=== PATIENT | female | born 1950 | race Caucasian/White ===

== ENCOUNTER 2020-09-16 06:01 | Inpatient (IN) | payer OTHER, SELFPAY ==
[~2020-09-16] VITALS: Ht 157.5 cm; Wt 115.7 kg
--- NOTE | 2020-09-16 06:01 | NUR ---
Patient to ER bed 7 to gown for evaluation. Side rails up.
--- NOTE | 2020-09-16 06:10 | NUR ---
Dr. St bedside for pt eval
[2020-09-16] MEDS ORDERED: ONDANSETRON HCL 4 MG/2 ML VIAL IVP ONE (06:15)
[2020-09-16] MEDS ORDERED: KETOROLAC TROMETHAMINE 30 MG VIAL IVP ONE (06:15)
--- NOTE | 2020-09-16 06:20 | NUR ---
Pt BIB family to ED C/O nausea/vomiting/and diarrhea. She states that she has had sx's for a few days, but they mostly occur at night. She experiences multiple episodes of vomiting and diarrhea. She also reports chills and dizziness. She has abdominal discomfort in the pelvic region which she rates 5/10 VSS no s/s of acute distress Resting on gurney rails up
[2020-09-16 06:30] VITALS: BP_SYST 158
[2020-09-16 06:30] LABS: BASOPHILS % (AUTO) 0.3 % (0.0-2.0); EOSINOPHILS % (AUTO) 0.3 % (0.0-4.0); HEMATOCRIT 37.6 % (36-48); HEMOGLOBIN 12.6 g/dL (12.0-16.0); LYMPHOCYTES # (AUTO) 1.2 K/uL (1.0-5.5); LYMPHOCYTES % (AUTO) 9.3 % (20.5-51.5); MEAN CORPUSCULAR HEMOGLOBIN 29 pg (27-31); MEAN CORPUSCULAR HGB CONC 33 % (32-36); MEAN CORPUSCULAR VOLUME 87 fL (79.0-98.0); MONOCYTES # (AUTO) 0.6 K/uL (0.0-1.0); MONOCYTES % (AUTO) 4.7 % (1.7-9.3); NEUTROPHILS # (AUTO) 10.8 K/uL (1.8-7.7); NEUTROPHILS % (AUTO) 85.4 % (40.0-70.0); PLATELET COUNT (AUTO) 194 K/uL (130-430); RED BLOOD CELL COUNT(AUTO) 4.33 MIL/uL (4.2-6.2); RED CELL DISTRIBUTION WIDTH 15.3 % (9.0-15.0); WHITE BLOOD COUNT (AUTO) 12.7 K/uL (4.8-10.8)
[2020-09-16 06:42] LABS: ANION GAP 9 (5-15); CALCIUM 8.2 mg/dL (8.4-11.0); CHLORIDE 101 mmol/L (98-107); CREATININE 0.78 mg/dL (0.55-1.30); GLUCOSE 146 mg/dL (70-99); POTASSIUM 3.9 mmol/L (3.5-5.1); SODIUM SERUM 134 mmol/L (136-145); UREA NITROGEN, BLOOD 8 mg/dL (8-21)
[2020-09-16 06:44] LABS: PROTHROMBIN TIME 10.6 SECS (9.5-12.5)
[2020-09-16 06:47] LABS: ALANINE AMINOTRANSFERASE 42 U/L (12-78); ALBUMIN 3.1 g/dL (3.4-4.8); AMYLASE 59 U/L (0-100); ASPARTATE AMINOTRANSFERASE 33 U/L (10-37); LIPASE 49 U/L (73-393); TOTAL BILIRUBIN 0.6 mg/dL (0.0-1.0)
--- NOTE | 2020-09-16 06:52 | NUR ---
LAURA Wise sent to lab
--- NOTE | 2020-09-16 06:57 | NUR ---
Portable X Ray bedside, well tolerated
--- NOTE | 2020-09-16 08:00 | NUR ---
Pt resting in hatt[place]oriarty VSS
--- NOTE | 2020-09-16 08:50 | NUR ---
Pt beginning to have some dyspnea, states hx asthma. MD reevaluate pt respiratory status
[2020-09-16] MEDS ORDERED: IPRATROPIUM/ALBUTEROL SULFATE 3 ML AMPUL.NEB (DUONEB) INH ONE (09:15)
--- NOTE | 2020-09-16 09:20 | NUR ---
Pt breathing more comfortably after treatment
[2020-09-16] MEDS ORDERED: cefTRIAXone 1 GM IVPB PREMIX 50 ML IV ONE (10:00)
[2020-09-16] MEDS ORDERED: LORazepam 2 MG/ML VIAL IVP ONE (10:15)
--- NOTE | 2020-09-16 10:22 | NUR ---
Patient will be admitted to care of Dr. Boyd. Admitted to tele unit. Will go to room 123B. Belongings list completed. Complete and up to date summary report printed. SBAR report to be given at bedside with opportunity for questions.
[2020-09-16 10:35] VITALS: BP_SYST 144
--- NOTE | 2020-09-16 10:35 | NUR ---
Note Pt arrived from ED via gurney to room. Pt has coughing, no output. VS stable and tele unit applied on admission to room. Pt was oriented to room and nursing routines and procedures. Questions/concerns wee answered at this time. Pt oriented to call light and kept within reach.
[2020-09-16] MEDS ORDERED: IPRATROPIUM BROM 0.5 MG/2.5 ML VIAL.NEB (ATROVENT) INH PRN (10:45)
[2020-09-16] MEDS ORDERED: ALBUTEROL SULFATE 0.083% 2.5 MG/3 ML VIAL.NEB INH PRN (10:45)
[2020-09-16] MEDS ORDERED: cefTRIAXone 1 GM in D5W 50 ML IV SCH (11:00)
[2020-09-16] MEDS ORDERED: RACEPINEPHRINE HCL 0.5 ML VIAL.NEB INH ONE ×2 (11:15→11:30)
[2020-09-16] MEDS ORDERED: methylPREDNISolone SOD SUCC/PF 62.5 MG/ML VIAL IVP ONE (11:15)
--- NOTE | 2020-09-16 11:30 | NUR ---
Note 11am - pt has difficulty breathing and can't catch her breath. Breathing treatment done in ED at 0920am not effective. Dr Olson (pulm) called and orders received. RT at bedside doing treatment. Pt's daughter Chente called for medical history, Noemy (daughter) also called for medical history as pt unable to answer questions due to SOB and resp distress.
[2020-09-16] MEDS ORDERED: MECL-174 PO (11:41)
[2020-09-16] MEDS ORDERED: LOSA100T3 PO (11:41)
[2020-09-16] MEDS ORDERED: PRO40 PO (11:41)
[2020-09-16] MEDS ORDERED: CEL20 PO (11:41)
[2020-09-16] MEDS ORDERED: IBUP-1969 PO (11:41)
[2020-09-16 12:00] VITALS: BP_SYST 139
[2020-09-16] MEDS: AZITHROMYCIN 500 MG in NS 250 ML IV SCH (12:44)
[2020-09-16] MEDS: ALBUTEROL SULFATE 0.083% 2.5 MG/3 ML VIAL.NEB INH SCH ×2 (13:31→19:51)
[2020-09-16] MEDS: IPRATROPIUM BROM 0.5 MG/2.5 ML VIAL.NEB (ATROVENT) INH SCH ×2 (13:31→19:52)
--- NOTE | 2020-09-16 14:15 | NUR ---
Note Pt resting in bed with O2 facial mask on. No SOB/resp distress or pain/discomfort noted at this time. Pt able to sit up and turn/move in bed independently. Dr Olson on the floor to assess pt and check labs.
[2020-09-16 16:00] VITALS: BP_SYST 135
--- NOTE | 2020-09-16 18:25 | NUR ---
Note Pt sitting on side of bed eating her dinner. Pt removed her face mask to eat. No SOB/resp distress or pain/discomfort noted at this time. IV in RAC intact and patent all shift. Pt was checked on q1' for care and needs. Pt was checked for safety and isolation precautions all shift. No needs noted. Call light within reach.
--- NOTE | 2020-09-16 19:15 | NUR ---
Report received from day shift nurse. Pt is lying in bed fully awake, alert and oriented x4. Pt is on oxygen via Cool aerosol mask at 5L/min and oxygen saturations are ranging from 95% to 96%. Shortness of breath on exertion noted. Pt denies pain at this time. Saline lock in RAC is without any signs of infiltration. Fall, droplet isolation and safety precautions are in place. Call light is with pt and bed is in lowest/locked positions.
[2020-09-16 20:00] VITALS: BP_SYST 114
--- NOTE | 2020-09-16 20:45 | NUR ---
Resting comfortably in bed. No c/o pain or discomfort. Fall, droplet isolation and safety precautions are in place.
[2020-09-16] MEDS: methylPREDNISolone SOD SUCC/PF 62.5 MG/ML VIAL IVP SCH (20:50)
--- NOTE | 2020-09-16 23:00 | NUR ---
Pt is sleeping without any distress noted. Oxygen is on via aerosol mask at 5L/min. Call light is with pt and bed alarm is on.
[2020-09-17] VITALS: BP_SYST 121
--- NOTE | 2020-09-17 01:00 | NUR ---
Pt is sleeping without any distress noted. Call light is with pt and bed alarm is on. Oxygen is on at 5L/min via aerosol mask.
[2020-09-17] MEDS: IPRATROPIUM BROM 0.5 MG/2.5 ML VIAL.NEB (ATROVENT) INH SCH ×3 (01:15→16:35)
[2020-09-17] MEDS: ALBUTEROL SULFATE 0.083% 2.5 MG/3 ML VIAL.NEB INH SCH ×3 (01:15→16:34)
--- NOTE | 2020-09-17 02:15 | NUR ---
Pt ambulated to the bathroom and back to bed with FWW. Gait slow and steady. Pt had SOB on exertion. Pt was offered BSC, but pt declined. Pt had loose brownish bowel movement in the toilet. Pt placed back on oxygen at 5L/min via Aerosol mask. Call light given to pt and bed alarm on.
--- NOTE | 2020-09-17 04:05 | NUR ---
Pt ambulated to the bathroom and back to bed with FWW. Gait slow and steady. Pt had SOB on exertion and non-productive cough. Pt had another loose brownish bowel movement in the toilet. Pt was placed back on oxygen at 5L/min via Aerosol mask. Call light given to pt and bed alarm on.
--- NOTE | 2020-09-17 05:20 | NUR ---
Pt had another loose brownish bowel movement in the toilet.
--- NOTE | 2020-09-17 06:35 | NUR ---
Pt is resting comfortably in bed. No c/o pain or discomfort. Fall, droplet isolation and safety precautions are in place. Will endorse to day shift nurse.
--- NOTE | 2020-09-17 07:12 | NUR ---
Report given to day shift nurse.
[2020-09-17 08:00] VITALS: BP_SYST 121
--- NOTE | 2020-09-17 08:00 | NUR ---
Note Pt sitting up in bed eating her breakfast with Areosal mask on. Tele unit attached and intact at this time. IV in RAC intact and patent. No SOB/resp distress or pain/discomfort noted at this time. Pt has non productive cough at this time. Call light within reach.
[2020-09-17] MEDS: CITALOPRAM HYDROBROMIDE 20 MG TABLET PO SCH (09:14)
[2020-09-17] MEDS: methylPREDNISolone SOD SUCC/PF 62.5 MG/ML VIAL IVP SCH ×2 (09:14→20:17)
[2020-09-17] MEDS: cefTRIAXone 1 GM in D5W 50 ML IV SCH (09:14)
[2020-09-17] MEDS: LOSARTAN POTASSIUM 50 MG TABLET (COZAAR) PO SCH (09:15)
[2020-09-17] MEDS: PANTOPRAZOLE SODIUM 40 MG TAB PO SCH (09:15)
--- NOTE | 2020-09-17 10:00 | NUR ---
Note Dr Olson on the floor to assess pt, spoke to pt's daughter and update on pt's status given. Questions/concerns were answered at this time. Call light within reach.
--- NOTE | 2020-09-17 10:08 | NUR ---
Nutrition Update Cash Scale 17 noted. Pt admitted for pneumonia/rule out COVID. Diet: regular BMI: 46.6 kg/m2 RD to follow per nutrition care standards.
[2020-09-17] MEDS ORDERED: hydrALAZINE HCL 20 MG/ML VIAL IVP PRN (10:30)
[2020-09-17] MEDS ORDERED: cloNIDine HCL 0.1 MG TABLET PO PRN (10:30)
[2020-09-17] MEDS: AZITHROMYCIN 500 MG in NS 250 ML IV SCH (11:09)
[2020-09-17] MEDS: guaiFENesin/DEXTROMETHORPHAN 10 ML UDC PO PRN ×2 (11:45→22:46)
[2020-09-17 12:00] VITALS: BP_SYST 144
--- NOTE | 2020-09-17 12:15 | NUR ---
Note Pt ambulated to restroom with FWW and standby assist. Pt got out of breath during ambulation. Pt denies any needs at this time. Call light within reach. Areosol mask on throughout shift.
--- NOTE | 2020-09-17 14:50 | NUR ---
Note Pt resting in bed watching television with Aerosol mask on. Denies any needs at this time. Call light within reach.
[2020-09-17 16:00] VITALS: BP_SYST 137
--- NOTE | 2020-09-17 18:20 | NUR ---
Note Pt sitting on side of bed and eating her dinner. Pt has been on O2 at 1L/nc and sats at 94% - done by RT per Dr Boyd's request. No SOB/resp distress or pain/discomfort noted at this time. Tele unit attached and intact all shift. Pt has been checked on q1' and PRN all shift for needs and care. Pt was maintained with safety and isolation precautions all shift. IV in RAC intact and patent. No needs noted at this time. Call light within reach. Staff Nurse Anesthetist (Dr Olson) called and had isolation precautions dc'd - pt negative for COVID (PCR).
--- NOTE | 2020-09-17 19:15 | NUR ---
Report received from day shift nurse. Pt was received standing at her bedside fully awake, alert and oriented x4. Pt is on room air and oxygen saturation is 94%. No SOB noted. Pt denies pain at this time. Saline lock in RAC is without any signs of infiltration. Fall and safety precautions are in place. Call light is with pt and bed is in lowest/locked positions.
[2020-09-17 20:00] VITALS: BP_SYST 107
--- NOTE | 2020-09-17 20:44 | NUR ---
Report given to nurse Shaver for continuity of pt's nursing care.
--- NOTE | 2020-09-17 20:45 | NUR ---
OPENING NOTES Received report from ROSS Barrera. Patient transferred to room 119B, AAOx4, breathing evenly and nonlabored on 2L of oxygen via NC. Patient has an IV on the right AC 20g SL, flushed, patent and benign, no s/s of infection or infiltration at this time. Educated patient on plan of care, fall/safety precautions, call light system, patient stated understanding with return demonstration. Bed is locked, armed, and at lowest position, will continue to monitor.
--- NOTE | 2020-09-17 22:46 | NUR ---
PRN MEDICATION FOR COUGHING GIVEN Patient resting in bed, awake, breathing evenly and nonlabored on room air. Patient complained of coughing. Educated patient on Robitussin, patient stated understanding. Administered cough medication, patient tolerated it well. No other needs at this time. Fall/safety precautions, will continue to monitor. Addendum: 09/18/20 at 0330 by Timoteo Davis RN PRN MEDICATION FOR COUGHING GIVEN Patient resting in bed, awake, breathing evenly and nonlabored on 2L of oxygen via NC. Patient complained of coughing. Educated patient on Robitussin, patient stated understanding. Administered cough medication, patient tolerated it well. No other needs at this time. Fall/safety precautions, will continue to monitor.
--- NOTE | 2020-09-18 00:12 | NUR ---
ROUNDS Patient resting in bed, eyes closed, breathing evenly and nonlabored on room air. No s/s of distress at this time, no other needs at this time. Fall/safety precautions, will continue to monitor the patient. Addendum: 09/18/20 at 0329 by Timoteo Davis RN ROUNDS Patient resting in bed, eyes closed, breathing evenly and nonlabored on 2L of oxygen via NC. No s/s of distress at this time, no other needs at this time. Fall/safety precautions, will continue to monitor the patient.
[2020-09-18 00:52] VITALS: BP_SYST 130
--- NOTE | 2020-09-18 02:19 | NUR ---
ROUNDS Patient resting in bed, eyes closed, breathing evenly and nonlabored on 2L of oxygen via NC. No s/s of distress at this time, no other needs at this time. Fall/safety precautions, will continue to monitor.
--- NOTE | 2020-09-18 04:11 | NUR ---
ROUNDS Patient resting in bed, eyes closed, breathing evenly and nonlabored on 2L of oxygen via NC. No s/s of distress at this time, no other needs at this time. Fall/safety precautions, will continue to monitor the patient.
--- NOTE | 2020-09-18 06:35 | NUR ---
CLOSING NOTES Patient resting in bed, eyes closed, breathing evenly and nonlabored on 2L of oxygen via NC. No s/s of distress at this time, no other needs at this time. Needs met throughout the shift. Fall/safety precautions, will endorse care to morning shift RN.
[2020-09-18] MEDS: IPRATROPIUM BROM 0.5 MG/2.5 ML VIAL.NEB (ATROVENT) INH SCH ×4 (07:31→23:43)
[2020-09-18] MEDS: ALBUTEROL SULFATE 0.083% 2.5 MG/3 ML VIAL.NEB INH SCH ×4 (07:31→23:43)
[2020-09-18 07:52] VITALS: BP_SYST 165
--- NOTE | 2020-09-18 07:52 | NUR ---
INITIAL ROUNDS Received pt AAOx4, no s/s resp distress, no c/o pain or discomfort. No c/o GI distress. Plan of care for the day reviewed with pt-pt verbalized her understanding. Pain management, disease process, skin and safety discussed-teach back done. Side rails up x3, bed alarm on, room close to nursing station for safety. Call light within reach.
[2020-09-18] MEDS: methylPREDNISolone SOD SUCC/PF 62.5 MG/ML VIAL IVP SCH ×2 (09:05→20:58)
[2020-09-18] MEDS: LOSARTAN POTASSIUM 50 MG TABLET (COZAAR) PO SCH (09:05)
[2020-09-18] MEDS: PANTOPRAZOLE SODIUM 40 MG TAB PO SCH (09:05)
[2020-09-18] MEDS: cefTRIAXone 1 GM in D5W 50 ML IV SCH (09:05)
[2020-09-18] MEDS: CITALOPRAM HYDROBROMIDE 20 MG TABLET PO SCH (09:05)
--- NOTE | 2020-09-18 11:47 | NUR ---
CONSULTATION CALLED REASON FOR CONSULTATION:PNEUMONIA WAS CONSULT CALLED?Y PERSON WHO WAS NOTIFIED:SUSAN CONSULTING PHYSICIAN:BAKARI LIU AUTO WASHER SPECIALTY:INFECTIOUS IDSEASE AUTO WASHER PHONE NUMBER:[phone] REQUESTING PHYSICIAN:LENORA DECKER
--- NOTE | 2020-09-18 11:57 | NUR ---
ROUNDS/MD Pt sitting up in bed with no s/s resp distress, no c/o pain or discomfort. Pt's daughter Noemy at bedside. Pt seen by Dr. Boyd-he spoke with Noemy also. Noted new order for ID consult. Needs met, call light within reach.
[2020-09-18 12:23] VITALS: BP_SYST 130
[2020-09-18] MEDS: AZITHROMYCIN 500 MG in NS 250 ML IV SCH (12:52)
[2020-09-18] MEDS: guaiFENesin/DEXTROMETHORPHAN 10 ML UDC PO PRN ×2 (12:58→23:07)
--- NOTE | 2020-09-18 13:00 | NUR ---
ROUNDS/WHEEZING Pt wheezing, called RT for respiratory therapy. SAO2 95% on room air.
--- NOTE | 2020-09-18 14:33 | NUR ---
Dietitian Recommendations * Recommend 2 gm Na, mechanical soft diet * RD to provide HTN and wt management MNT LP, RD Please refer to Nutrition Assessment for details. Addendum: 09/18/20 at [address] Amended: Links added.
--- NOTE | 2020-09-18 15:01 | NUR ---
ROUNDS Pt sitting up in bed talking with the dietitian. No s/s resp distress, no c/o pain or discomfort. No changes. All precautions remain in place. Call light within reach.
[2020-09-18 16:26] VITALS: BP_SYST 129
--- NOTE | 2020-09-18 18:30 | NUR ---
CLOSING NOTE Pt sitting up in bed with no c/o shortness of breath, no s/s resp distress, no c/o pain or discomfort. Pt informed that an Infectious Disease doctor will consult with her per Dr. Oliver hart. Needs met, call light within reach.
--- NOTE | 2020-09-18 19:20 | NUR ---
OPENING NOTE: RECEIVED SBAR REPORT FROM DAY SHIFT RN. PATIENT IS AWAKE, ALERT AND ORIENTED X 4. NO S/S RESPIRATORY DISTRESS NOTED. DENIES PAIN. PLAN OF CARE REVIEWED AND EXPLAINED TO PATIENT. PATIENT VERBALIZED UNDERSTANDING. SAFETY AND FALL PRECAUTIONS ARE IN PLACE. CALL LIGHT IS WITHIN REACH. WILL MONITOR PATIENT FOR ANY CHANGES.
[2020-09-18] MEDS: BUDESONIDE 0.5 MG/2 ML AMPUL.NEB INH SCH (19:43)
[2020-09-18 20:00] VITALS: BP_SYST 144
--- NOTE | 2020-09-18 20:58 | NUR ---
MEDICATION PASS: PATIENT GIVEN SCHEDULED EVENING MED. NO S/S ACUTE DISTRESS NOTED. BREATHING IN UNLABORED AND EVEN ON 1 L OF OXYGEN VIA NC. SHE IS AMBULATORY WITH ASSIST. REFUSED USING SCD'S. SAFETY AND FALL PRECAUTIONS ARE MAINTAINED. CALL LIGHT IS WITH PATIENT. WILL MONITOR.
--- NOTE | 2020-09-18 23:07 | NUR ---
COUGH MEDICATION: PATIENT REPORTS PERSISTENT COUGH. COUGH MED GIVEN TO PATIENT. TOLERATED WELL. CALLED RT FOR BREATHING TREATMENT.
[2020-09-19] VITALS: BP_SYST 131
--- NOTE | 2020-09-19 02:00 | NUR ---
RN ROUNDS: PATIENT IS AWAKE, DENIES PAIN. RESPIRATION IS EVEN AND UNLABORED. SAFETY AND FALL PRECAUTIONS ARE IN PLACE. CALL LIGHT IS WITH PATIENT. WILL CONTINUE TO MONITOR.
--- NOTE | 2020-09-19 04:07 | NUR ---
RN ROUNDS: PATIENT IS IN BED, CURRENTLY SLEEPING. NO S/S RESPIRATORY DISTRESS NOTED. SAFETY AND FALL PRECAUTIONS ARE IN PLACE. CALL LIGHT IS WITH PATIENT. WILL CONTINUE TO MONITOR .
--- NOTE | 2020-09-19 06:31 | NUR ---
CLOSING NOTES PATIENT IS RESTING IN BED, AWAKE. BREATHING EVENLY AND UNLABORED. NO S/S OF ACUTE DISTRESS. DENIES PAIN. NEEDS MET THROUGHOUT THE SHFT. FALL/SAFETY PRECAUTIONS MAINTAINED, WILL ENDORSE CARE TO DAY SHIFT RN.
[2020-09-19 07:14] VITALS: BP_SYST 146
[2020-09-19] MEDS: ALBUTEROL SULFATE 0.083% 2.5 MG/3 ML VIAL.NEB INH SCH ×3 (07:17→19:49)
[2020-09-19] MEDS: IPRATROPIUM BROM 0.5 MG/2.5 ML VIAL.NEB (ATROVENT) INH SCH ×3 (07:17→19:50)
[2020-09-19] MEDS: BUDESONIDE 0.5 MG/2 ML AMPUL.NEB INH SCH ×2 (07:20→20:07)
[2020-09-19 07:48] VITALS: BP_SYST 146
[2020-09-19] MEDS: methylPREDNISolone SOD SUCC/PF 62.5 MG/ML VIAL IVP SCH ×2 (08:05→21:00)
[2020-09-19] MEDS: CITALOPRAM HYDROBROMIDE 20 MG TABLET PO SCH (08:05)
[2020-09-19] MEDS: LOSARTAN POTASSIUM 50 MG TABLET (COZAAR) PO SCH (08:06)
[2020-09-19] MEDS: PANTOPRAZOLE SODIUM 40 MG TAB PO SCH (08:06)
[2020-09-19] MEDS: cefTRIAXone 1 GM in D5W 50 ML IV SCH (08:07)
--- NOTE | 2020-09-19 08:20 | NUR ---
opening notes, received pt in bed, pt is aaox4, denies pain, no sob, no fever, vitals checked. pt got breathing treatment. pt given am meds. encouraged pt to call for assist and any concerns. call light in reach. bed in low position. will cont to monitor.
--- NOTE | 2020-09-19 08:25 | NUR ---
pt's daughter julianna called, julianna updated with pt's status. julianna requested to call her sister when dr martinez come to see pt.
[2020-09-19 11:27] VITALS: BP_SYST 135
[2020-09-19] MEDS ORDERED: ACETAMINOPHEN 325 MG TABLET PO PRN (11:30)
--- NOTE | 2020-09-19 11:33 | NUR ---
dr schrader and dr tay here and seen and spoke with patient. dr schrader said he spoke with patients daughter also. made aware that pt did no sleep well last night, may need anxiety med, med for headache and sleeping pills.
[2020-09-19] MEDS: AZITHROMYCIN 500 MG in NS 250 ML IV SCH (11:48)
[2020-09-19] MEDS ORDERED: FUROSEMIDE 40 MG TABLET PO ONE (12:00)
[2020-09-19] MEDS: LORazepam 1 MG TABLET PO PRN ×2 (12:08→20:45)
[2020-09-19 12:57] LABS: HEMATOCRIT 35.1 % (36-48); HEMOGLOBIN 11.8 g/dL (12.0-16.0); LYMPHOCYTES % (AUTO) 9.8 % (20.5-51.5); MEAN CORPUSCULAR HEMOGLOBIN 29 pg (27-31); MEAN CORPUSCULAR HGB CONC 34 % (32-36); MEAN CORPUSCULAR VOLUME 88 fL (79.0-98.0); MONOCYTES # (AUTO) 0.5 K/uL (0.0-1.0); NEUTROPHILS # (AUTO) 8.5 K/uL (1.8-7.7); NEUTROPHILS % (AUTO) 85.2 % (40.0-70.0); PLATELET COUNT (AUTO) 210 K/uL (130-430); RED BLOOD CELL COUNT(AUTO) 4.01 MIL/uL (4.2-6.2); RED CELL DISTRIBUTION WIDTH 15.8 % (9.0-15.0); WHITE BLOOD COUNT (AUTO) 9.9 K/uL (4.8-10.8)
[2020-09-19 13:26] LABS: ALANINE AMINOTRANSFERASE 58 U/L (12-78); ALBUMIN 2.8 g/dL (3.4-4.8); ANION GAP 12 (5-15); ASPARTATE AMINOTRANSFERASE 40 U/L (10-37); CALCIUM 8.7 mg/dL (8.4-11.0); CHLORIDE 103 mmol/L (98-107); GLUCOSE 230 mg/dL (70-99); POTASSIUM 3.8 mmol/L (3.5-5.1); SODIUM SERUM 136 mmol/L (136-145); TOTAL BILIRUBIN 0.3 mg/dL (0.0-1.0); UREA NITROGEN, BLOOD 18 mg/dL (8-21)
[2020-09-19] MEDS: FLUCONAZOLE 100 mg/ NS 50 ML IV SCH (13:39)
--- NOTE | 2020-09-19 14:40 | NUR ---
pt handed off to gerson fleming. pt is stable.
[2020-09-19 14:58] LABS: ERYTHROCYTE SEDIMENTATION RATE 40 MM/HR (0-20)
[2020-09-19 15:18] VITALS: BP_SYST 138
--- NOTE | 2020-09-19 18:12 | NUR ---
Patient care assumed. A/Ox4. Review on POC. Will delegate to next shift.
[2020-09-19 19:45] VITALS: BP_SYST 130
--- NOTE | 2020-09-19 19:45 | NUR ---
INITIAL NOTE AT INITIAL ASSESSMENT, PATIENT IS RESTING IN BED, STABLE, NO SIGNS OF RESPIRATORY DISTRESS. PATIENT VERBALIZES NO PAIN. PLAN OF CARE FOR THE EVENING IS COMMUNICATED WITH THE PATIENT. PATIENT DEMONSTRATES CORRECT USAGE OF CALL LIGHT AT THIS TIME. BED IS LOCKED, ALARMED, AND AT THE LOWEST LEVEL. FALL SAFETY EDUCATION PROVIDED. FALL, SAFETY, ASPIRATION, ISOLATION, AND RESPIRATORY PRECAUTIONS WILL BE TAKEN THROUGHOUT THE SHIFT.
[2020-09-19] MEDS: guaiFENesin/DEXTROMETHORPHAN 10 ML UDC PO PRN (20:45)
--- NOTE | 2020-09-19 20:45 | NUR ---
MED PASS NOTE SCHEDULED MEDICATIONS GIVEN AT THIS TIME, PATIENT TOLERATED WELL. PRN MEDICATION WILL BE GIVEN AT THIS TIME FOR PATIENTS INSOMNIA COMPLAINT PER MD ORDERS. WILL REASSESS IF PRN MEDICATION GIVEN WAS EFFECTIVE. CALL LIGHT IS PLACED WITHIN REACH. BED IS LOCKED, ALARMED, AND AT THE LOWEST LEVEL.
--- NOTE | 2020-09-19 22:45 | NUR ---
NOTE PATIENT IS RESTING IN BED, STABLE, NO SIGNS OF RESPIRATORY DISTRESS. CALL LIGHT IS WITHIN REACH. BED IS LOCKED, ALARMED, AND AT THE LOWEST LEVEL.
[2020-09-20] VITALS: BP_SYST 132
--- NOTE | 2020-09-20 00:35 | NUR ---
NOTE PATIENT IS SLEEPING, STABLE, NO SIGNS OF RESPIRATORY DISTRESS. CALL LIGHT IS WITHIN REACH. BED IS LOCKED, ALARMED, AND AT THE LOWEST LEVEL.
[2020-09-20] MEDS: ALBUTEROL SULFATE 0.083% 2.5 MG/3 ML VIAL.NEB INH SCH ×4 (01:00→21:04)
[2020-09-20] MEDS: IPRATROPIUM BROM 0.5 MG/2.5 ML VIAL.NEB (ATROVENT) INH SCH ×4 (01:30→21:04)
--- NOTE | 2020-09-20 02:35 | NUR ---
NOTE PATIENT IS SLEEPING, STABLE, NO SIGNS OF RESPIRATORY DISTRESS. CALL LIGHT IS WITHIN REACH. BED IS LOCKED, ALARMED, AND AT THE LOWEST LEVEL.
--- NOTE | 2020-09-20 04:35 | NUR ---
NOTE PATIENT IS SLEEPING, STABLE, NO SIGNS OF RESPIRATORY DISTRESS. CALL LIGHT IS WITHIN REACH. BED IS LOCKED, ALARMED, AND AT THE LOWEST LEVEL.
[2020-09-20 06:24] LABS: BASOPHILS % (AUTO) 0.1 % (0.0-2.0); EOSINOPHILS % (AUTO) 0.1 % (0.0-4.0); HEMATOCRIT 34.9 % (36-48); HEMOGLOBIN 11.5 g/dL (12.0-16.0); LYMPHOCYTES # (AUTO) 1.3 K/uL (1.0-5.5); LYMPHOCYTES % (AUTO) 16.2 % (20.5-51.5); MEAN CORPUSCULAR HEMOGLOBIN 29 pg (27-31); MEAN CORPUSCULAR HGB CONC 33 % (32-36); MEAN CORPUSCULAR VOLUME 87 fL (79.0-98.0); MONOCYTES # (AUTO) 0.3 K/uL (0.0-1.0); NEUTROPHILS # (AUTO) 6.2 K/uL (1.8-7.7); NEUTROPHILS % (AUTO) 79.6 % (40.0-70.0); PLATELET COUNT (AUTO) 190 K/uL (130-430); RED BLOOD CELL COUNT(AUTO) 4.01 MIL/uL (4.2-6.2); RED CELL DISTRIBUTION WIDTH 15.3 % (9.0-15.0); WHITE BLOOD COUNT (AUTO) 7.8 K/uL (4.8-10.8)
--- NOTE | 2020-09-20 06:35 | NUR ---
CLOSING NOTE PATIENT SLEPT WELL THROUGHOUT THE SHIFT, NO SHORTNESS OF BREATH NOTED. AT THIS TIME, PATIENT IS RESTING IN BED, STABLE, NO SIGNS OF RESPIRATORY DISTRESS. CALL LIGHT IS WITHIN REACH. BED IS LOCKED, ALARMED, AND AT THE LOWEST LEVEL. FALL, SAFETY, ASPIRATION, ISOLATION, AND RESPIRATORY PRECAUTIONS HAVE BEEN TAKEN THROUGHOUT THE SHIFT. WILL CONTINUE TO MONITOR UNTIL SHIFT REPORT IS GIVEN AT BEDSIDE TO AM NURSE.
[2020-09-20] MEDS: BUDESONIDE 0.5 MG/2 ML AMPUL.NEB INH SCH ×2 (06:43→21:04)
[2020-09-20 06:53] LABS: ALANINE AMINOTRANSFERASE 61 U/L (12-78); ALBUMIN 2.6 g/dL (3.4-4.8); ANION GAP 8 (5-15); ASPARTATE AMINOTRANSFERASE 36 U/L (10-37); CALCIUM 8.4 mg/dL (8.4-11.0); CHLORIDE 105 mmol/L (98-107); CREATININE 0.87 mg/dL (0.55-1.30); GLUCOSE 207 mg/dL (70-99); POTASSIUM 4.7 mmol/L (3.5-5.1); SODIUM SERUM 139 mmol/L (136-145); TOTAL BILIRUBIN 0.4 mg/dL (0.0-1.0); UREA NITROGEN, BLOOD 19 mg/dL (8-21)
--- NOTE | 2020-09-20 07:45 | NUR ---
OPENING NOTES PT AWAKE, ALERT, AND ORIENTED. NONLABORED BREATHING NOTED ON ROOM AIR AT THIS TIME. IV LINE INTACT AND PATENT, NO SIGNS OF INFILTRATION NOTED. NO ACUTE DISTRESS NOTED. ALL NEEDS MET. CALL LIGHT IN REACH. FALL AND ASPIRATION PRECAUTIONS IN PLACE. CONTINUE TO MONITOR.
[2020-09-20 08:00] VITALS: BP_SYST 165
[2020-09-20] MEDS: methylPREDNISolone SOD SUCC/PF 62.5 MG/ML VIAL IVP SCH ×2 (08:45→20:27)
[2020-09-20] MEDS: LOSARTAN POTASSIUM 50 MG TABLET (COZAAR) PO SCH (08:45)
[2020-09-20] MEDS: CITALOPRAM HYDROBROMIDE 20 MG TABLET PO SCH (08:45)
[2020-09-20] MEDS: FUROSEMIDE 40 MG TABLET PO SCH (08:45)
[2020-09-20] MEDS: PANTOPRAZOLE SODIUM 40 MG TAB PO SCH (08:45)
[2020-09-20] MEDS: cefTRIAXone 1 GM in D5W 50 ML IV SCH (08:45)
--- NOTE | 2020-09-20 08:45 | NUR ---
routine meds administered as ordered per md, education given, tolerated well. continue to monitor.
--- NOTE | 2020-09-20 10:15 | NUR ---
ASSISTED PT TO BATHROOM WITH WALKER, TOLERATED WELL. STEADY GAIT WITH WALKER. CONTINUE TO MONITOR.
[2020-09-20] MEDS: AZITHROMYCIN 500 MG in NS 250 ML IV SCH (11:00)
--- NOTE | 2020-09-20 11:42 | NUR ---
IV ABX ADMINISTERED ORDERED PER MD, EDUCATION GIVEN, TOLERATED WELL. PT SEEN BY DR. ZAMORA AT BEDSIDE WITH FAMILY. MD GAVE EDUCATION REGARDING CARE, PT VERBALIZED UNDERSTANDING. BED BATH GIVEN AT BEDSIDE AND LINEN CHANGED. CONTINUE TO MONITOR.
[2020-09-20 12:08] VITALS: BP_SYST 145
[2020-09-20] MEDS: FLUCONAZOLE 100 mg/ NS 50 ML IV SCH (12:24)
--- NOTE | 2020-09-20 12:24 | NUR ---
ROUTINE MEDS ADMINISTERED ORDERED PER MD, EDUCATION GIVEN, TOLERATED WELL. LUNCH TRAY GIVEN AT BEDSIDE. ASSISTED PT TO BATHROOM AND BACK TO BED WITH WALKER, TOLERATED WELL. PT SITTING UP AT EDGE OF BED EATING LUNCH. CONTINUE TO MONITOR.
--- NOTE | 2020-09-20 14:40 | NUR ---
D/C ISO COVID PCR TEST NEGATIVE, SPOKE TO DR. ARANGO, D/C ISO, RECEIVED ORDERS, VERIFIED, AND CARRIED OUT.
[2020-09-20 15:40] VITALS: BP_SYST 122
--- NOTE | 2020-09-20 15:41 | NUR ---
vital signs stable. all needs met. call light in reach. continue to monitor.
--- NOTE | 2020-09-20 17:03 | NUR ---
CONSULTATION CALLED REASON FOR CONSULTATION:RUN OF V-TACH WAS CONSULT CALLED?Y PERSON WHO WAS NOTIFIED:EDD CONSULTING PHYSICIAN:JUANPABLO HUTCHISON RAG INSPECTOR SPECIALTY:CARDIO RAG INSPECTOR PHONE NUMBER:[phone] REQUESTING PHYSICIAN:ISIDORO SANCHEZ
--- NOTE | 2020-09-20 17:05 | NUR ---
VTACH FOR 5.12 SEC AT 1652 WAS NOTIFIED THAT MONITOR SHOWED VTACH FOR 5.12 SECONDS, CHECKED PT, PT AWAKE, ALERT, AND ORIENTED AND DENIES CHEST PAIN AT THIS TIME. VITAL SIGNS STABLE 133/61, HR 85, 96%. 20 RESP, 97.[address] ZAMORA NOTIFIED, READ 2D ECHO RESULTS AND UPDATED ON PATIENT'S STATUS. RECEIVED ORDERS FOR CONSULT, VERIFIED, AND CARRIED OUT.
--- NOTE | 2020-09-20 17:17 | NUR ---
SPOKE TO DR. REYNA REGARDING PATIENT'S CARE AND STATUS WELL VTACH EPISODE, RECEIVED ORDERS, VERIFIED, AND CARRIED OUT.
[2020-09-20] MEDS ORDERED: METOPROLOL SUCCINATE 25 MG TAB.SR.24H (TOPROL XL) PO ONE (17:30)
--- NOTE | 2020-09-20 17:44 | NUR ---
ROUTINE MEDS ADMINISTERED ORDERED PER MD, EDUCATION GIVE, PT VERBALIZED UNDERSTANDING, TOLERATED WELL. PT SITTING UP AT EDGE OF BED EATING DINNER. CONTINUE TO MONITOR.
--- NOTE | 2020-09-20 18:49 | NUR ---
CLOSING NOTES PT AWAKE, ALERT, AND ORIENTED, TALKING TO ADVISORY APPLICATION DEVELOPER AT THIS TIME. NONLABORED BREATHING NOTED ON ROOM AIR. PT STATES NOT HAVING DIARRHEA SINCE MONDAY, DENIES NAUSEA AND PAIN AT THIS TIME. IV LINE INTACT AND PATENT, NO SIGNS OF INFILTRATION NOTED. NO ACUTE DISTRESS NOTED. ALL NEEDS MET. CALL LIGHT IN REACH. FALL AND ASPIRATION PRECAUTIONS IN PLACE. WILL ENDORSE TO NOC NURSE.
[2020-09-20 19:50] VITALS: BP_SYST 130
--- NOTE | 2020-09-20 19:50 | NUR ---
INITIAL NOTE AT INITIAL ASSESSMENT, PATIENT IS RESTING IN BED, STABLE, NO SIGNS OF RESPIRATORY DISTRESS. PATIENT VERBALIZES NO PAIN. PLAN OF CARE FOR THE EVENING IS COMMUNICATED WITH THE PATIENT. PATIENT DEMONSTRATES CORRECT USAGE OF CALL LIGHT AT THIS TIME. BED IS LOCKED, ALARMED, AND AT THE LOWEST LEVEL. FALL SAFETY EDUCATION PROVIDED. FALL, SAFETY, ASPIRATION, AND RESPIRATORY PRECAUTIONS WILL BE TAKEN THROUGHOUT THE SHIFT.
[2020-09-20] MEDS: guaiFENesin/DEXTROMETHORPHAN 10 ML UDC PO PRN (20:27)
[2020-09-20] MEDS: LORazepam 1 MG TABLET PO PRN (20:28)
--- NOTE | 2020-09-20 21:50 | NUR ---
MED PASS NOTE SCHEDULED MEDICATIONS GIVEN AT THIS TIME, PATIENT TOLERATED WELL. CALL LIGHT IS PLACED WITHIN REACH. BED IS LOCKED, ALARMED, AND AT THE LOWEST LEVEL.
--- NOTE | 2020-09-20 23:50 | NUR ---
NOTE PATIENT IS SLEEPING, STABLE, NO SIGNS OF RESPIRATORY DISTRESS. CALL LIGHT IS WITHIN REACH. BED IS LOCKED, ALARMED, AND AT THE LOWEST LEVEL.
[2020-09-21] VITALS: BP_SYST 126
[2020-09-21] MEDS: ALBUTEROL SULFATE 0.083% 2.5 MG/3 ML VIAL.NEB INH SCH ×3 (01:00→13:36)
[2020-09-21] MEDS: IPRATROPIUM BROM 0.5 MG/2.5 ML VIAL.NEB (ATROVENT) INH SCH ×3 (01:00→13:36)
--- NOTE | 2020-09-21 01:50 | NUR ---
NOTE PATIENT IS SLEEPING, STABLE, NO SIGNS OF RESPIRATORY DISTRESS. CALL LIGHT IS WITHIN REACH. BED IS LOCKED, ALARMED, AND AT THE LOWEST LEVEL.
--- NOTE | 2020-09-21 03:50 | NUR ---
NOTE PATIENT IS SLEEPING, STABLE, NO SIGNS OF RESPIRATORY DISTRESS. CALL LIGHT IS WITHIN REACH. BED IS LOCKED, ALARMED, AND AT THE LOWEST LEVEL.
--- NOTE | 2020-09-21 05:50 | NUR ---
NOTE PATIENT IS SLEEPING, STABLE, NO SIGNS OF RESPIRATORY DISTRESS. CALL LIGHT IS WITHIN REACH. BED IS LOCKED, ALARMED, AND AT THE LOWEST LEVEL.
[2020-09-21 06:37] LABS: ALANINE AMINOTRANSFERASE 79 U/L (12-78); ALBUMIN 2.8 g/dL (3.4-4.8); ANION GAP 8 (5-15); ASPARTATE AMINOTRANSFERASE 47 U/L (10-37); CALCIUM 8.4 mg/dL (8.4-11.0); CHLORIDE 102 mmol/L (98-107); CREATININE 0.98 mg/dL (0.55-1.30); GLUCOSE 239 mg/dL (70-99); POTASSIUM 4.2 mmol/L (3.5-5.1); SODIUM SERUM 137 mmol/L (136-145); TOTAL BILIRUBIN 0.3 mg/dL (0.0-1.0); UREA NITROGEN, BLOOD 21 mg/dL (8-21)
--- NOTE | 2020-09-21 06:50 | NUR ---
CLOSING NOTE PATIENT SLEPT WELL THROUGHOUT THE SHIFT, NO EPISODES OF RESPIRATORY DISTRESS. AT THIS TIME, PATIENT IS RESTING IN BED, STABLE, NO SIGNS OF RESPIRATORY DISTRESS. CALL LIGHT IS WITHIN REACH. BED IS LOCKED, ALARMED, AND AT THE LOWEST LEVEL. FALL, SAFETY, ASPIRATION, AND RESPIRATORY PRECAUTIONS HAVE BEEN TAKEN THROUGHOUT THE SHIFT. WILL CONTINUE TO MONITOR UNTIL SHIFT REPORT IS GIVEN AT BEDSIDE TO AM NURSE.
[2020-09-21] MEDS: BUDESONIDE 0.5 MG/2 ML AMPUL.NEB INH SCH (07:38)
[2020-09-21] MEDS: cefTRIAXone 1 GM in D5W 50 ML IV SCH (08:09)
[2020-09-21] MEDS: FUROSEMIDE 40 MG TABLET PO SCH (08:10)
[2020-09-21] MEDS: CITALOPRAM HYDROBROMIDE 20 MG TABLET PO SCH (08:11)
[2020-09-21] MEDS: methylPREDNISolone SOD SUCC/PF 62.5 MG/ML VIAL IVP SCH (08:12)
[2020-09-21] MEDS: PANTOPRAZOLE SODIUM 40 MG TAB PO SCH (08:12)
[2020-09-21] MEDS: LOSARTAN POTASSIUM 50 MG TABLET (COZAAR) PO SCH (08:12)
[2020-09-21 08:20] VITALS: BP_SYST 145
--- NOTE | 2020-09-21 08:20 | NUR ---
Received pt in room, pt is walking in the room, no c/o pain, no sob at this time. vitals wnl. no fever. will cont to monitor.
[2020-09-21] MEDS ORDERED: METOPROLOL SUCCINATE 25 MG TAB.SR.24H (TOPROL XL) PO SCH (09:00)
[2020-09-21] MEDS ORDERED: METO25TA3 PO (11:31)
[2020-09-21] MEDS ORDERED: AMOX-426 PO (11:31)
[2020-09-21] MEDS ORDERED: BUDE0.5A INH (11:31)
[2020-09-21] MEDS ORDERED: ALBMDI INH (11:31)
[2020-09-21 11:32] VITALS: BP_SYST 139
--- NOTE | 2020-09-21 12:27 | NUR ---
Paged Dr Kamara for additional orders before dc. pt made aware.
--- NOTE | 2020-09-21 13:54 | NUR ---
LEFT MESSAGE WITH Harvinder [facility]. REQUESTED HARVINDER TO CALL BACK.
[2020-09-21] MEDS: FLUCONAZOLE 100 mg/ NS 50 ML IV SCH (13:55)
[2020-09-21] MEDS ORDERED: DOXY100T2 PO (13:58)
[2020-09-21] MEDS ORDERED: DIF100 PO (13:58)
--- NOTE | 2020-09-21 14:37 | NUR ---
spoke with dcp reggie, reminded her of the order for home health nurse and pt's daughter requesting for nebulizer and front wheel walker. reggie said she will call dr martinez.
--- NOTE | 2020-09-21 14:46 | NUR ---
verified with pt's pharmacy that rx for doxycycline and diflucan is available
[2020-09-21 15:34] VITALS: BP_SYST 134
--- NOTE | 2020-09-21 16:45 | NUR ---
PAGED PAGED LENORA DECKER AT [phone] SPOKE WITH MANUEL.
--- NOTE | 2020-09-21 16:53 | NUR ---
MS TRENT HOFFMAN CALLED AT SPOKE WITH CHRISTIANO.
--- NOTE | 2020-09-21 16:54 | NUR ---
PAGED DR JETT TO CLARIFY ORDER FOR NEBULIZER.
--- NOTE | 2020-09-21 17:29 | NUR ---
2ND PAGE OUT TO LENORA CORNELIUS AT [phone] SPOKE WITH JOYCE.
--- NOTE | 2020-09-21 18:01 | NUR ---
dr martinez called back and said to dc the pt and dc the pulmicort medication, pt does not need nebulizer. pt was told about this.
[2020-09-21 18:17] VITALS: BP_SYST 93
--- NOTE | 2020-09-21 19:00 | NUR ---
D/C Patient Patient given medication reconciliation form and D/C instructions. Exit Care provided. Patient verbalized understanding. MD discussed with patient the results and treatment provided. Ambulatory with steady gait for discharge to home. Patient in stable condition, ID band removed. IV catheter removed, intact and dressing applied, no active bleeding. 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 Patient educated on pain management. All belongings sent with patient.
[2020-09-21 23:08] LABS: MYCOPLASMA PNEUMONIAE IgM <770 U/mL (0-769)
--- NOTE | 2020-09-24 15:19 | NUR ---
Discharge Follow Up Phone Call Noted that there was a discharge planning order for HH, FWW, and nebulizer. Phoned D[facility], , and left a voicemail message requesting information on which agencies were used. No call back yet. Phoned the number listed for patient, . It is a wrong number. Phoned the number listed for patient's daughter, Noemy, , and left a voicemail message. Ultrasound Tester will continue to follow up.
--- NOTE | 2020-09-30 14:17 | NUR ---
Discharge Follow Up call: MECHANIC'S ASSISTANT spoke with dtr, Noemy @ [phone]. Per Noemy, patient is doing "pretty good". Pt had a follow up appointment with PCP today, 09/30. Pt also received DME, FWW and nebulize and is also receiving PT and nurse visits at home. Pt was also able to fill her prescription upon discharge. MECHANIC'S ASSISTANT encouraged Noemy to phone SS if any questions arise. No further SS call needed at this time.
== END 2020-09-21 19:00 | disposition home or self-care (01) | DRG 871 ==
LOC: SED 06:01 → STU 10:03
PROVIDERS: ADMIT Internal Medicine Hospice and Palliative Medicine; ATTEND Internal Medicine Hospice and Palliative Medicine
DX: A41.9 Sepsis, unspecified organism (principal); J96.01 Acute respiratory failure with hypoxia; I50.43 Acute on chronic combined systolic (congestive) and diastolic (congestive) heart failure; J12.9 Viral pneumonia, unspecified; I47.1 Supraventricular tachycardia; A08.4 Viral intestinal infection, unspecified; E66.01 Morbid (severe) obesity due to excess calories; G47.33 Obstructive sleep apnea (adult) (pediatric); I11.0 Hypertensive heart disease with heart failure; T38.0X5A Adverse effect of glucocorticoids and synthetic analogues, initial encounter; K82.8 Other specified diseases of gallbladder; E11.65 Type 2 diabetes mellitus with hyperglycemia; Z20.828 Contact with and (suspected) exposure to other viral communicable diseases; F32.9 Major depressive disorder, single episode, unspecified; F41.9 Anxiety disorder, unspecified; Z79.899 Other long term (current) drug therapy; Y92.89 Other specified places as the place of occurrence of the external cause
CPT/HCPCS: 36415; 36600; 71045; 76377; 76700-TC; 80053; 82150-TC; 82803-TC; 83036; 83605; 83690-TC; 83735-TC; 83880; 85025; 85379; 85610-TC; 85651-TC; 86635; 86738; 87040-TC; 93005; 93306; 93970; 94640; 94760; 96365; 96375; 99285; G0378; J0456; J0696; J1450; J1885; J2060; J2405; J2930; J7040; J7050; J7060; J7613; J7626; U0003